=== PATIENT | male | born 1990 | race African-American/Black ===

== ENCOUNTER 2016-05-22 16:30 | Emergency (ER) | payer OTHER ==
[~2016-05-22] VITALS: Ht 193 cm; Wt 74.8 kg
[2016-05-22 17:43] LABS: MEAN CORPUSCULAR HEMOGLOBIN 23.3 pg (27.0-33.0); MEAN CORPUSCULAR HGB CONC 32.2 g/dl (32.0-36.5); MEAN CORPUSCULAR VOLUME 72.3 fl (80.0-96.0); RED CELL DISTRIBUTION WIDTH 13.8 % (11.5-14.5); WHITE BLOOD COUNT 5.4 K/mm3 (4.0-10.0)
[2016-05-22 18:05] LABS: ALBUMIN 4.2 GM/DL (3.2-5.2); ALBUMIN/GLOBULIN RATIO 1.45 (1.00-1.93); ALKALINE PHOSPHATASE 57 U/L (45-117); ALT/SGPT 27 U/L (12-78); ANION GAP 10 MEQ/L (8-16); AST/SGOT 15 U/L (15-37); BILIRUBIN,DIRECT 0.2 MG/DL (0.0-0.2); BILIRUBIN,TOTAL 1.1 MG/DL (0.2-1.0); BLOOD UREA NITROGEN 11 MG/DL (7-18); CALCIUM LEVEL 9.2 MG/DL (8.5-10.1); CARBON DIOXIDE LEVEL 28 MEQ/L (21-32); CHLORIDE LEVEL 104 MEQ/L (98-107); CREATININE FOR GFR 1.07 MG/DL (0.70-1.30); GLOMERULAR FILTRATION RATE > 60.0 (>60); GLUCOSE, FASTING 94 MG/DL (70-105); POTASSIUM SERUM 3.6 MEQ/L (3.5-5.1); SODIUM LEVEL 142 MEQ/L (136-145); TOTAL PROTEIN 7.1 GM/DL (6.4-8.2)
[2016-05-22 18:09] LABS: AMPHETAMINES LEVEL URINE NEGATIVE (NEGATIVE); BENZODIAZEPINES URINE NEGATIVE (NEGATIVE); COCAINE METABOLITE URINE NEGATIVE (NEGATIVE); CONTROL LINE INT CTR LINE PRESENT; METHADONE URINE NEGATIVE (NEGATIVE); OPIATES URINE NEGATIVE (NEGATIVE); TRICYCLIC ANTIDEPRESS URINE NEGATIVE (NEGATIVE)
[2016-05-22] MEDS ORDERED: LURASIDONE HCL 40 MG TAB (LATUDA) PO ONE (20:00)
--- NOTE | 2016-05-22 20:12 | EDDOCDS ---
Nurse's Notes [facility] Name: Sivakumar Castro Age: 26 yrs Sex: Male : 1990 Arrival Date: 05/22/2016 Time: 16:30 Bed OBSERVATION Private MD: Blake Castillo Diagnosis: Unspecified mood [affective] disorder Presentation: 05/22 16:34 Presenting complaint: Patient states: "I've just been really depressed. Saying I'm jc4 going to hurt myself". Denies plan. Mental Health Triage Level: Level 2: The patient displays active suicidal ideations. Adult Sepsis Screening: The patient does not have new or worsening altered mentation. Patient's respiratory rate is less than 22. Systolic blood pressure is greater than 100. Patient has a qSOFA score of 0- Negative Sepsis Screen. Suicide/Homicide risk assessment- The patient reports that he/she has not been admitted to an inpatient mental health facility in the last 30 days. The patient reports that he/she does not have a recent or current history of substance abuse. The patient reports that he/she has a prior history of suicide attempt and/or organized plan. The patient reports that he/she has not experienced a significant life altering event in the last 30 days. The patient reports that he/she has adequate social support. The patient reports he/she has no significant chronic medical condition(s). Status: Patient is not a food service cashier or dependent. Transition of care: patient was not received from another setting of care. 16:34 Acuity: MALENA Level 3 jc4 16:34 Method Of Arrival: Walkin/Carried/Asstd jc4 Triage Assessment: 16:37 General: Appears in no apparent distress. Pain: Location: right and left knee Pain jc4 currently is 5 out of 10 on a pain scale. Pt Declines HIV testing. Historical: - Allergies: Bactrim; PENICILLINS; - Home Meds: 1. Remeron 30 mg Oral tab 1 tab once daily (Last dose: Unknown) - PMHx: Depression; - PSHx: Adenoidectomy; - Social history: Smoking status: Patient uses tobacco products, heavy tobacco smoker. No barriers to communication noted, The patient speaks fluent Kiswahili. - Family history: Not pertinent. - : The pt / caregiver states he / she is not on anticoagulants. Home medication list is obtained from the patient. - Exposure Risk Screening:: None identified. Screenin:25 Screening information is obtained from the patient. Fall risk: No risks identified. mk4 Assistance ADL's: requires no assistance with activities of daily living. Abuse/DV Screen: The patient / caregiver reports he/she is: not in a situation that causes fear, pain or injury. Nutritional screening: No deficits noted. Advance Directives: Currently, there is no health care proxy. There is no active DNR order. There is no living will. There is no Power of Bridge Welder. Advance directive information has not previously been placed in an [facility] medical record. Further advance directive information is declined. home support is adequate. Assessment: 17:10 General: Appears in no apparent distress, Behavior is cooperative, quiet. Pain: Denies mk4 pain. Neurological: Level of Consciousness is awake, alert, Oriented to person, place, time. Respiratory: Airway is patent Respiratory effort is even, unlabored, Respiratory pattern is regular. : Derm: No deficits noted. 17:45 General: Appears in no apparent distress, comfortable, family at bedside. mk4 18:17 General: Appears in no apparent distress, comfortable, Behavior is cooperative. mk4 18:37 General: Appears in no apparent distress, Behavior is cooperative, dinner tray mk4 provided, family at bedside. 19:08 General: Appears in no apparent distress, comfortable, Behavior is cooperative, quiet. slm General: pt resting on stretcher security observing . Respiratory: Airway is patent Respiratory pattern is regular. 20:00 General: Appears in no apparent distress, comfortable, Behavior is appropriate for age, slm cooperative, pleasant. Pain: Denies pain. Neurological: No deficits noted. Respiratory: Airway is patent Respiratory effort is even, unlabored. Derm: No deficits noted. Vital Signs: 16:32 BP 135 / 67; Pulse 80; Resp 18 S; Temp 96.0(O); Pulse Ox 98% on R/A; Weight 74.84 kg gr2 (R); Height 6 ft. 4 in. (193.04 cm) (R); Pain 3/10; 20:06 BP 126 / 69; Pulse 67; Resp 18; Temp 97.5(O); Pulse Ox 97% ; Pain 5/10; cmb 16:32 Body Mass Index 20.08 (74.84 kg, 193.04 cm) gr2 Vitals: 16:32 Log In Time: May 22, 2016 at 16:32. RN notified that patient meets Red Flag gr2 criteria. ED Course: 16:31 Patient visited by Pao Sevilla. gr2 16:31 Patient moved to Waiting gr2 16:32 Blake Castillo is Private Physician. gr2 16:34 Patient visited by Pao Sevilla. gr2 16:34 Patient moved to Pre RCE gr2 16:36 Triage Initiated jc4 16:38 Juanito Santos DO is Attending Physician. cs11 16:38 Patient moved to [facility] jc4 16:39 Patient visited by Juanito Santos DO. cs11 16:39 Patient moved to OBSERVATION cs11 16:56 Patient visited by Henny Yo RN. mk4 17:06 Patient visited by Mychal Harding Security Aide. pjf 17:06 Pt greeted and oriented to ED. Patient advised of names of staff involved in care, pjf location of call ibrahim, wait times and NPO status. Patient has correct armband on for positive identification. Placed in psych safe attire. Bed in low position. Call light in reach. Side rails up X 1. Security observing. Property removed, secured in belongings bag- Placed in locker #4. Door closed. Noise minimized. Visitors limited. Report received from chart rev. - psych. triage level #2, +si, cooperative \\T\\ this time. The patient / caregiver is instructed regarding the plan of care and ED course. Psych Safety Check: Location: Psych Room. Visual Assessment: Cooperative. 17:16 Patient visited by Mychal Harding Security Aide. pjf 17:24 Acetaminophen Level Sent. mk4 17:24 Basic Metabolic Profile Sent. mk4 17:24 Complete Blood Count Sent. mk4 17:24 Drug Eval Toxicology ED Only Sent. mk4 17:24 Ethyl Alcohol (ethanol) Sent. mk4 17:24 Liver Profile Sent. mk4 17:24 Salicylate Level Sent. mk4 17:24 Thyroid Stimulating Hormone Sent. mk4 17:30 Patient visited by Mychal Harding Security Aide. pjf 17:43 Patient visited by Mychal Harding Security Aide. pjf 18:01 Patient visited by Mychal Harding Security Aide. pjf 18:17 No IV's were initiated during this patient's visit. No procedures done that require mk4 assistance. 18:28 Patient visited by Mychal Harding Security Aide. pjf 18:42 [facility] Payment Agreement was scanned into [employer] and attached to record. zo 18:45 Patient visited by Mychal Harding Security Aide. pjf 19:04 Patient visited by Jennifer Colon. cmb 19:07 Sandhya Little LPN is Primary Nurse. slm 19:27 Referral list, As provided by [facility] is Referral Physician. cs11 19:39 Patient visited by Jennifer Colon. cmb 20:01 Patient visited by Sandhya Little LPN. slm 20:06 Patient visited by Jennifer Colon. cmb Administered Medications: 20:09 Drug: Latuda 40 mg Route: PO; [facility] Order Results: Lab Order: Acetaminophen Level; SPEC'M 05/22/16 16:57 Test: ACETAMINOPHEN LEVEL; Value: < 2.0; Range: 10.0-30.0; Abnormal: Below low normal; Units: UG/ML; Status: F Lab Order: Basic Metabolic Profile; SPEC'M 05/22/16 16:57 Test: GLUCOSE, FASTING; Value: 94; Range: 70-105; Units: MG/DL; Status: F Test: BLOOD UREA NITROGEN; Value: 11; Range: 7-18; Units: MG/DL; Status: F Test: CREATININE FOR GFR; Value: 1.07; Range: 0.70-1.30; Units: MG/DL; Status: F Test: GLOMERULAR FILTRATION RATE; Value: > 60.0; Range: >60; Status: F Test: SODIUM LEVEL; Value: 142; Range: 136-145; Units: MEQ/L; Status: F Test: POTASSIUM SERUM; Value: 3.6; Range: 3.5-5.1; Units: MEQ/L; Status: F Test: CHLORIDE LEVEL; Value: 104; Range: 98-107; Units: MEQ/L; Status: F Test: CARBON DIOXIDE LEVEL; Value: 28; Range: 21-32; Units: MEQ/L; Status: F Test: ANION GAP; Value: 10; Range: 8-16; Units: MEQ/L; Status: F Test: CALCIUM LEVEL; Value: 9.2; Range: 8.5-10.1; Units: MG/DL; Status: F Test Note: ; Units are mL/min/1.73 m2 Chronic Kidney Disease Staging per NKF: Stage I & II GFR >=60 Normal to Mildly Decreased Stage III GFR 30-59 Moderately Decreased Stage IV GFR 15-29 Severely Decreased Stage V GFR <15 Very Little GFR Left ESRD GFR <15 on MOTION PICTURE PROJECTIONIST Lab Order: Complete Blood Count; SPEC'M 05/22/16 16:57 Test: WHITE BLOOD COUNT; Value: 5.4; Range: 4.0-10.0; Units: K/mm3; Status: F Test: RED BLOOD COUNT; Value: 5.53; Range: 4.30-6.10; Units: M/mm3; Status: F Test: HEMOGLOBIN; Value: 12.9; Range: 14.0-18.0; Abnormal: Below low normal; Units: g/dl; Status: F Test: HEMATOCRIT; Value: 40.0; Range: 42.0-52.0; Abnormal: Below low normal; Units: %; Status: F Test: MEAN CORPUSCULAR VOLUME; Value: 72.3; Range: 80.0-96.0; Abnormal: Below low normal; Units: fl; Status: F Test: MEAN CORPUSCULAR HEMOGLOBIN; Value: 23.3; Range: 27.0-33.0; Abnormal: Below low normal; Units: pg; Status: F Test: MEAN CORPUSCULAR HGB CONC; Value: 32.2; Range: 32.0-36.5; Units: g/dl; Status: F Test: RED CELL DISTRIBUTION WIDTH; Value: 13.8; Range: 11.5-14.5; Units: %; Status: F Test: PLATELET COUNT, AUTOMATED; Value: 287; Range: 150-450; Units: k/mm3; Status: F Lab Order: Drug Eval Toxicology ED Only; SPEC'M 05/22/16 16:57 Test: AMPHETAMINES LEVEL URINE; Value: NEGATIVE; Range: NEGATIVE; Status: F Test: BARBITURATES URINE; Value: NEGATIVE; Range: NEGATIVE; Status: F Test: BENZODIAZEPINES URINE; Value: NEGATIVE; Range: NEGATIVE; Status: F Test: CANNABINOIDS URINE; Value: NEGATIVE; Range: NEGATIVE; Status: F Test: COCAINE METABOLITE URINE; Value: NEGATIVE; Range: NEGATIVE; Status: F Test: METHADONE URINE; Value: NEGATIVE; Range: NEGATIVE; Status: F Test: OPIATES URINE; Value: NEGATIVE; Range: NEGATIVE; Status: F Test: TRICYCLIC ANTIDEPRESS URINE; Value: NEGATIVE; Range: NEGATIVE; Status: F Test Note: ; ALL PRESUMPTIVE POSITIVE FINDINGS ARE UNCONFIRMED NORMAL VALUES THRESHOLD IN NG/ML AMPHETAMINES 1000 METHAMPHETAMINES 1000 BARBITURATES 300 BENZODIAZEPINES 300 CANNABINOIDS (THC) 50 COCAINE METABOLITE 300 METHADONE 300 OPIATES 300 PHENCYCLIDINE 25 TRICYCLIC ANTIDEPRESSANTS 1000 RESULTS ARE FOR MEDICAL PURPOSES ONLY. ALL URINE SPECIMENS WILL BE SAVED FOR 3 DAYS. IF CONFIRMATION OF A PRESUMPTIVE POSTIVE SCREEN RESULT IS DESIRED, CALL CHEMISTRY ([phone]) AND REQUEST URINE TO BE SENT TO REFERENCE LAB. FOR A LIST OF CLOSELY RELATED COMPOUNDS PLEASE CALL THE LAB. Lab Order: Ethyl Alcohol (ethanol); SPEC'M 05/22/16 16:57 Test: ETHYL ALCOHOL (ETHANOL); Value: < 0.003; Range: 0.000-0.010; Units: %; Status: F Lab Order: Liver Profile; SPEC'M 05/22/16 16:57 Test: AST/SGOT; Value: 15; Range: 15-37; Units: U/L; Status: F Test: ALT/SGPT; Value: 27; Range: 12-78; Units: U/L; Status: F Test: ALKALINE PHOSPHATASE; Value: 57; Range: 45-117; Units: U/L; Status: F Test: BILIRUBIN,TOTAL; Value: 1.1; Range: 0.2-1.0; Abnormal: Above high normal; Units: MG/DL; Status: F Test: BILIRUBIN,DIRECT; Value: 0.2; Range: 0.0-0.2; Units: MG/DL; Status: F Test: TOTAL PROTEIN; Value: 7.1; Range: 6.4-8.2; Units: GM/DL; Status: F Test: ALBUMIN; Value: 4.2; Range: 3.2-5.2; Units: GM/DL; Status: F Test: ALBUMIN/GLOBULIN RATIO; Value: 1.45; Range: 1.00-1.93; Status: F Lab Order: Salicylate Level; SPEC'M 05/22/16 16:57 Test: SALICYLATE LEVEL; Value: < 1.7; Range: 5.0-30.0; Abnormal: Below low normal; Units: MG/DL; Status: F Lab Order: Thyroid Stimulating Hormone; SPEC'M 05/22/16 16:57 Test: THYROID STIMULATING HORMONE; Value: 0.512; Range: 0.358-3.740; Units: uIU/ML; Status: F Outcome: 19:27 Discharge ordered by Provider. cs11 20:00 Discharge Assessment: Patient awake, alert and oriented x 3. No cognitive and/or slm functional deficits noted. Patient verbalized understanding of disposition instructions. patient administered narcotics - no. The following High Risk Discharge criteria are identified: Yes, pt seen by MD and PSA d/c home with s/o. Discharged to home ambulatory. Condition: good. Discharge instructions given to patient, Instructed on discharge instructions, follow up and referral plans. Demonstrated understanding of instructions, Pt was receptive of discharge instructions/ teaching. No special radiology studies were completed. 20:11 Patient left the ED. [facility] Signatures: Mychal Harding Security Aide Securpjf Olin, Zoeann zo Castle, Jennifer, RN RN [email or web address] Jennifer Colon Craig, DO DO cs11 Pao Sevilla gr2 Sandhya Little,ADITYA ORTHOPEDIC BRACE MAKER [facility] Henny Yo, RN RN mk4 MTDRonal
--- NOTE | 2016-05-22 20:12 | EDDOCDS ---
Physician Documentation [facility] Name: Sivakumar Castro Age: 26 yrs Sex: Male : 1990 Arrival Date: 05/22/2016 Time: 16:30 Bed OBSERVATION Private MD: Blake Castillo Disposition: 05/22/16 19:27 Discharged to Home/Self Care. Impression: Unspecified mood [affective] disorder. - Condition is Stable. - Prescriptions for Latuda 40 mg Oral tablet - take 1 tablet by ORAL route once daily; 30 tablet. - Medication Reconciliation, Local Pharmacy Hours form. - Follow up: Referral list, As provided by PFS; When: Call to arrange an appointment; Reason: Recheck today's complaints. - Problem is chronic. - Symptoms have improved. Historical: - Allergies: Bactrim; PENICILLINS; - Home Meds: 1. Remeron 30 mg Oral tab 1 tab once daily (Last dose: Unknown) - PMHx: Depression; - PSHx: Adenoidectomy; - Social history: Smoking status: Patient uses tobacco products, heavy tobacco smoker. No barriers to communication noted, The patient speaks fluent Portuguese. - Family history: Not pertinent. - : The pt / caregiver states he / she is not on anticoagulants. Home medication list is obtained from the patient. - Exposure Risk Screening:: None identified. Vital Signs: 05/22 16:32 BP 135 / 67; Pulse 80; Resp 18 S; Temp 96.0(O); Pulse Ox 98% on R/A; Weight 74.84 kg / gr2 164.99 lbs (R); Height 6 ft. 4 in. (193.04 cm) (R); Pain 3/10; 20:06 BP 126 / 69; Pulse 67; Resp 18; Temp 97.5(O); Pulse Ox 97% ; Pain 5/10; cmb 16:32 Body Mass Index 20.08 (74.84 kg, 193.04 cm) gr2 MDM: 16:39 Consult PFS/PSA/Skip Miner ordered. cs11 16:39 Consult PFS/PSA/Skip Miner: Patient's case requires discussion with on-call cs11 Psychiatrist ordered. 16:39 PSA/PFS to call Nursing Cytopathology Technologist, to enter patient data on [place] Safe [place] if patient cs11 involuntarily admitted or transferred for SI or HI ordered. 16:39 Confirm accurate psychiatric medication list and times of last dosage ordered. cs11 16:39 Detain Pt Until Medically/PFS Cleared ordered. cs11 16:40 Acetaminophen Level Ordered. EDMS 16:40 Basic Metabolic Profile Ordered. EDMS 16:40 Complete Blood Count Ordered. EDMS 16:40 Drug Eval Toxicology ED Only Ordered. EDMS 16:40 Ethyl Alcohol (ethanol) Ordered. EDMS 16:40 Liver Profile Ordered. EDMS 16:40 Salicylate Level Ordered. EDMS 16:40 Thyroid Stimulating Hormone Ordered. EDMS 16:54 REGULAR DIET PLASTIC FERRARA+DIET ordered. EDMS 17:06 PSA/PFS to call Nursing Cytopathology Technologist, to enter patient data on [place] Safe Act if patient mk4 involuntarily admitted or transferred for SI or HI complete. 17:06 Consult PFS/PSA/Skip Miner: Patient's case requires discussion with on-call 4 Psychiatrist complete. 17:07 Consult PFS/PSA/Skip Miner complete. [facility] 18:29 Financial registration complete. zo 18:42 [facility] Payment Agreement was scanned into [employer] and attached to record. zo 19:23 Acetaminophen Level Reviewed. cs11 19:23 Complete Blood Count Reviewed. cs11 19:23 Liver Profile Reviewed. cs11 19:23 Salicylate Level Reviewed. cs11 19:23 Basic Metabolic Profile Reviewed. cs11 19:23 Drug Eval Toxicology ED Only Reviewed. cs11 19:23 Ethyl Alcohol (ethanol) Reviewed. cs11 19:23 Thyroid Stimulating Hormone Reviewed. cs11 19:26 Latuda 40 mg PO once; administer with food (at least 350 calories) ordered. cs11 Administered Medications: 20:09 Drug: Latuda 40 mg Route: PO; [facility] Signatures: Dispatcher [employer] EDMS Tacho Zuleta Jennifer RN RN jc4 Juanito Santos DO DO cs11 Sandhya Little LPN LPN slm King, Margaret RN RN mk4 The chart was reviewed and I authenticate all verbal orders and agree with the evaluation and treatment provided.Attachments: 18:42 [facility] Payment Agreement zo MTDD
--- NOTE | 2016-05-24 21:12 | EDDOCDS ---
Physician Documentation [facility] Name: Sivakumar Castro Age: 26 yrs Sex: Male : 1990 Arrival Date: 05/22/2016 Time: 16:30 Bed OBSERVATION Private MD: Blake Castillo Disposition: 05/22/16 19:27 Discharged to Home/Self Care. Impression: Unspecified mood [affective] disorder. - Condition is Stable. - Prescriptions for Latuda 40 mg Oral tablet - take 1 tablet by ORAL route once daily; 30 tablet. - Medication Reconciliation, Local Pharmacy Hours form. - Follow up: Referral list, As provided by PFS; When: Call to arrange an appointment; Reason: Recheck today's complaints. - Problem is chronic. - Symptoms have improved. Historical: - Allergies: Bactrim; PENICILLINS; - Home Meds: 1. Remeron 30 mg Oral tab 1 tab once daily (Last dose: Unknown) - PMHx: Depression; - PSHx: Adenoidectomy; - Social history: Smoking status: Patient uses tobacco products, heavy tobacco smoker. No barriers to communication noted, The patient speaks fluent Bulgarian. - Family history: Not pertinent. - : The pt / caregiver states he / she is not on anticoagulants. Home medication list is obtained from the patient. - Exposure Risk Screening:: None identified. Vital Signs: 05/22 16:32 BP 135 / 67; Pulse 80; Resp 18 S; Temp 96.0(O); Pulse Ox 98% on R/A; Weight 74.84 kg / gr2 164.99 lbs (R); Height 6 ft. 4 in. (193.04 cm) (R); Pain 3/10; 20:06 BP 126 / 69; Pulse 67; Resp 18; Temp 97.5(O); Pulse Ox 97% ; Pain 5/10; cmb 16:32 Body Mass Index 20.08 (74.84 kg, 193.04 cm) gr2 MDM: 16:39 Consult PFS/PSA/Adult Educator ordered. cs11 16:39 Consult PFS/PSA/Adult Educator: Patient's case requires discussion with on-call cs11 Psychiatrist ordered. 16:39 PSA/PFS to call Nursing Chipper Machine Operator, to enter patient data [place] Safe [place] if patient cs11 involuntarily admitted or transferred for SI or HI ordered. 16:39 Confirm accurate psychiatric medication list and times of last dosage ordered. cs11 16:39 Detain Pt Until Medically/PFS Cleared ordered. cs11 16:40 Acetaminophen Level Ordered. EDMS 16:40 Basic Metabolic Profile Ordered. EDMS 16:40 Complete Blood Count Ordered. EDMS 16:40 Drug Eval Toxicology ED Only Ordered. EDMS 16:40 Ethyl Alcohol (ethanol) Ordered. EDMS 16:40 Liver Profile Ordered. EDMS 16:40 Salicylate Level Ordered. EDMS 16:40 Thyroid Stimulating Hormone Ordered. EDMS 16:54 REGULAR DIET PLASTIC FERRARA+DIET ordered. EDMS 17:06 PSA/PFS to call Nursing Chipper Machine Operator, to enter patient data on [place] Safe Act if patient mk4 involuntarily admitted or transferred for SI or HI complete. 17:06 Consult PFS/PSA/Adult Educator: Patient's case requires discussion with on-call 4 Psychiatrist complete. 17:07 Consult PFS/PSA/Adult Educator complete. [facility] 18:29 Financial registration complete. zo 18:42 [facility] Payment Agreement was scanned into [employer] and attached to record. zo 19:23 Acetaminophen Level Reviewed. cs11 19:23 Complete Blood Count Reviewed. cs11 19:23 Liver Profile Reviewed. cs11 19:23 Salicylate Level Reviewed. cs11 19:23 Basic Metabolic Profile Reviewed. cs11 19:23 Drug Eval Toxicology ED Only Reviewed. cs11 19:23 Ethyl Alcohol (ethanol) Reviewed. cs11 19:23 Thyroid Stimulating Hormone Reviewed. cs11 19:26 Latuda 40 mg PO once; administer with food (at least 350 calories) ordered. cs11 20:15 PSA Outpatient Referrals was scanned into [employer] and attached to record. ml4 05/23 03:55 T-Sheet-- Draft Copy was scanned into [employer] and attached to record. hs2 Administered Medications: 05/22 20:09 Drug: Latuda 40 mg Route: PO; slm Signatures: Dispatcher [employer] EDMS Melita Narayan, PSA PSA ml4 Tacho Zuleta Jennifer, RN RN jc4 Juanito Santos, DO cs11 Sandhya Little LPN LPN Henny Doyle RN RN mk4 Belkis Sandesr, Reg Reg hs2 The chart was reviewed and I authenticate all verbal orders and agree with the evaluation and treatment provided.Attachments: 18:42 [facility] Payment Agreement zo 05/23 03:55 T-Sheet-- Draft Copy hs2 Chart Complete MTDD
--- NOTE | 2016-05-24 21:12 | EDDOCDS ---
Physician Documentation [facility] Name: Sivakumar aCstro Age: 26 yrs Sex: Male : 1990 Arrival Date: 05/22/2016 Time: 16:30 Bed OBSERVATION Private MD: Blake Castillo Disposition: 05/22/16 19:27 Discharged to Home/Self Care. Impression: Unspecified mood [affective] disorder. - Condition is Stable. - Prescriptions for Latuda 40 mg Oral tablet - take 1 tablet by ORAL route once daily; 30 tablet. - Medication Reconciliation, Local Pharmacy Hours form. - Follow up: Referral list, As provided by PFS; When: Call to arrange an appointment; Reason: Recheck today's complaints. - Problem is chronic. - Symptoms have improved. Historical: - Allergies: Bactrim; PENICILLINS; - Home Meds: 1. Remeron 30 mg Oral tab 1 tab once daily (Last dose: Unknown) - PMHx: Depression; - PSHx: Adenoidectomy; - Social history: Smoking status: Patient uses tobacco products, heavy tobacco smoker. No barriers to communication noted, The patient speaks fluent Uzbek. - Family history: Not pertinent. - : The pt / caregiver states he / she is not on anticoagulants. Home medication list is obtained from the patient. - Exposure Risk Screening:: None identified. Vital Signs: 05/22 16:32 BP 135 / 67; Pulse 80; Resp 18 S; Temp 96.0(O); Pulse Ox 98% on R/A; Weight 74.84 kg / gr2 164.99 lbs (R); Height 6 ft. 4 in. (193.04 cm) (R); Pain 3/10; 20:06 BP 126 / 69; Pulse 67; Resp 18; Temp 97.5(O); Pulse Ox 97% ; Pain 5/10; cmb 16:32 Body Mass Index 20.08 (74.84 kg, 193.04 cm) gr2 MDM: 16:39 Consult PFS/PSA/Proof Carrier ordered. cs11 16:39 Consult PFS/PSA/Proof Carrier: Patient's case requires discussion with on-call cs11 Psychiatrist ordered. 16:39 PSA/PFS to call Nursing [employer]de [employer] Finisher, to enter patient data on [place] Safe Act if patient cs11 involuntarily admitted or transferred for SI or HI ordered. 16:39 Confirm accurate psychiatric medication list and times of last dosage ordered. cs11 16:39 Detain Pt Until Medically/PFS Cleared ordered. cs11 16:40 Acetaminophen Level Ordered. EDMS 16:40 Basic Metabolic Profile Ordered. EDMS 16:40 Complete Blood Count Ordered. EDMS 16:40 Drug Eval Toxicology ED Only Ordered. EDMS 16:40 Ethyl Alcohol (ethanol) Ordered. EDMS 16:40 Liver Profile Ordered. EDMS 16:40 Salicylate Level Ordered. EDMS 16:40 Thyroid Stimulating Hormone Ordered. EDMS 16:54 REGULAR DIET PLASTIC FERRARA+DIET ordered. EDMS 17:06 PSA/PFS to call Nursing [employer], to enter patient data on [place] Safe Act if patient mk4 involuntarily admitted or transferred for SI or HI complete. 17:06 Consult PFS/PSA/Proof Carrier: Patient's case requires discussion with on-call 4 Psychiatrist complete. 17:07 Consult PFS/PSA/Proof Carrier complete. [facility] 18:29 Financial registration complete. zo 18:42 [facility] [place] [place] Payment Agreement was scanned into Estify and attached to record. zo 19:23 Acetaminophen Level Reviewed. cs11 19:23 Complete Blood Count Reviewed. cs11 19:23 Liver Profile Reviewed. cs11 19:23 Salicylate Level Reviewed. cs11 19:23 Basic Metabolic Profile Reviewed. cs11 19:23 Drug Eval Toxicology ED Only Reviewed. cs11 19:23 Ethyl Alcohol (ethanol) Reviewed. cs11 19:23 Thyroid Stimulating Hormone Reviewed. cs11 19:26 Latuda 40 mg PO once; administer with food (at least 350 calories) ordered. cs11 20:15 PSA Outpatient Referrals was scanned into Estify and attached to record. ml4 05/23 03:55 T-Sheet-- Draft Copy was scanned into Estify and attached to record. hs2 Administered Medications: 05/22 20:09 Drug: Latuda 40 mg Route: PO; slm Signatures: Dispatcher [employer] EDMS Melita Narayan, PSA PSA ml4 Tacho Zuleta Jennifer, RN RN jc4 Juanito Santos, DO cs11 Sandhya Little LPN LPN Henny Doyle RN RN mk4 Belkis Sanders, Reg Reg hs2 The chart was reviewed and I authenticate all verbal orders and agree with the evaluation and treatment provided.Attachments: 18:42 [facility] [place] [place] Payment Agreement zo 05/23 03:55 T-Sheet-- Draft Copy hs2 Chart Complete MTDD
--- NOTE | 2016-05-24 21:12 | EDDOCDS ---
Nurse's Notes [facility] Name: Sivakumar Castro Age: 26 yrs Sex: Male : 1990 Arrival Date: 05/22/2016 Time: 16:30 Bed OBSERVATION Private MD: Blake Castillo Diagnosis: Unspecified mood [affective] disorder Presentation: 05/22 16:34 Presenting complaint: Patient states: "I've just been really depressed. Saying I'm jc4 going to hurt myself". Denies plan. Mental Health Triage Level: Level 2: The patient displays active suicidal ideations. Adult Sepsis Screening: The patient does not have new or worsening altered mentation. Patient's respiratory rate is less than 22. Systolic blood pressure is greater than 100. Patient has a qSOFA score of 0- Negative Sepsis Screen. Suicide/Homicide risk assessment- The patient reports that he/she has not been admitted to an inpatient mental health facility in the last 30 days. The patient reports that he/she does not have a recent or current history of substance abuse. The patient reports that he/she has a prior history of suicide attempt and/or organized plan. The patient reports that he/she has not experienced a significant life altering event in the last 30 days. The patient reports that he/she has adequate social support. The patient reports he/she has no significant chronic medical condition(s). Status: Patient is not a retail services professional or dependent. Transition of care: patient was not received from another setting of care. 16:34 Acuity: MALENA Level 3 jc4 16:34 Method Of Arrival: Walkin/Carried/Asstd jc4 Triage Assessment: 16:37 General: Appears in no apparent distress. Pain: Location: right and left knee Pain jc4 currently is 5 out of 10 on a pain scale. Pt Declines HIV testing. Historical: - Allergies: Bactrim; PENICILLINS; - Home Meds: 1. Remeron 30 mg Oral tab 1 tab once daily (Last dose: Unknown) - PMHx: Depression; - PSHx: Adenoidectomy; - Social history: Smoking status: Patient uses tobacco products, heavy tobacco smoker. No barriers to communication noted, The patient speaks fluent Hebrew. - Family history: Not pertinent. - : The pt / caregiver states he / she is not on anticoagulants. Home medication list is obtained from the patient. - Exposure Risk Screening:: None identified. Screenin:25 Screening information is obtained from the patient. Fall risk: No risks identified. mk4 Assistance ADL's: requires no assistance with activities of daily living. Abuse/DV Screen: The patient / caregiver reports he/she is: not in a situation that causes fear, pain or injury. Nutritional screening: No deficits noted. Advance Directives: Currently, there is no health care proxy. There is no active DNR order. There is no living will. There is no Power of Abrasive Grinder. Advance directive information has not previously been placed in an [facility] medical record. Further advance directive information is declined. home support is adequate. Assessment: 17:10 General: Appears in no apparent distress, Behavior is cooperative, quiet. Pain: Denies mk4 pain. Neurological: Level of Consciousness is awake, alert, Oriented to person, place, time. Respiratory: Airway is patent Respiratory effort is even, unlabored, Respiratory pattern is regular. : Derm: No deficits noted. 17:45 General: Appears in no apparent distress, comfortable, family at bedside. mk4 18:17 General: Appears in no apparent distress, comfortable, Behavior is cooperative. mk4 18:37 General: Appears in no apparent distress, Behavior is cooperative, dinner tray mk4 provided, family at bedside. 19:08 General: Appears in no apparent distress, comfortable, Behavior is cooperative, quiet. slm General: pt resting on stretcher security observing . Respiratory: Airway is patent Respiratory pattern is regular. 20:00 General: Appears in no apparent distress, comfortable, Behavior is appropriate for age, slm cooperative, pleasant. Pain: Denies pain. Neurological: No deficits noted. Respiratory: Airway is patent Respiratory effort is even, unlabored. Derm: No deficits noted. Mental Health Eval: 19:01 Mental health consult is initiated at 18:45. Status: The patient is not a ml4 retail services professional or dependent. [facility] Behavioral Health: The patient is not an established patient of [facility] Behavioral Health. Referral Information: Evaluation referral is generated by the patient himself / herself. The patient was referred for evaluation because verbal altercation with friend where pt expressed SI, no specific plan. . Subjective: The patients chief complaint is pt states, "I just said something stupid, I'm not really suicidal." Pt reports a hx of depression, however does not feel he was diagnosed properly. Admits he was incarcerated in August, for selling drugs, was transferred to [place] where he was diagnosed with Bipolar Disorder and prescribed Latuda. He feels the medication was beneficial and is requesting medication. He adamantly SI and HIs, able to CFS. . Delusions are denied. Patient's mood is appropriate. Hallucinations are denied. Mental Health history: depression, Mental Health Admissions: None. Current Outpatient Mental Health Services: None. Current living environment is The patient currently lives Friends . The patient is single. Patient presents to Emergency Department with the following symptoms within the past 2 weeks: anxiety, depressed mood, suicidal ideation with no plan. Substance abuse: Patient uses marijuana Patient uses tobacco 1 pack Frequency daily. Mental status exam: Patients appearance is appropriate, Patient's behavior is cooperative, Speech is normal. Affect is appropriate. Mood is appropriate. Hallucinations are denied. Appetite is normal. Memory is good. Energy level is normal. Content of thought is normal. Thought process is intact. Cognitive level is oriented to person, place, time and situation Patient's insight is good. Judgement is good. Rapport with interviewer is good. Suicidal Ideation is denied. Homicidal ideation is denied. Disposition: Medically cleared for disposition by Juanito Santos DO Psychiatric Consult is deferred per ED physician, Dr Santos . [facility] Admission Criteria: Not Applicable. DSM-V Differential Diagnosis: Bipolar I Disorder (F31.0) Current or most recent episode unspecified (F31.9). Narrative: Pt is able to discharged from [facility]. He continues to deny SI and HI, able to CFS. Referrals for outpt services was given at bedside and directed to follow up with TLS for further tx. Vital Signs: 16:32 BP 135 / 67; Pulse 80; Resp 18 S; Temp 96.0(O); Pulse Ox 98% on R/A; Weight 74.84 kg gr2 (R); Height 6 ft. 4 in. (193.04 cm) (R); Pain 3/10; 20:06 BP 126 / 69; Pulse 67; Resp 18; Temp 97.5(O); Pulse Ox 97% ; Pain 5/10; cmb 16:32 Body Mass Index 20.08 (74.84 kg, 193.04 cm) gr2 Vitals: 16:32 Log In Time: May 22, 2016 at 16:32. RN notified that patient meets Red Flag gr2 criteria. ED Course: 16:31 Patient visited by Pao Sevilla. gr2 16:31 Patient moved to Waiting gr2 16:32 Blake Castillo is Private Physician. gr2 16:34 Patient visited by Pao Sevilla. gr2 16:34 Patient moved to Pre RCE gr2 16:36 Triage Initiated jc4 16:38 Juanito Santos DO is Attending Physician. cs11 16:38 Patient moved to [facility] jc4 16:39 Patient visited by Juanito Santos DO. cs11 16:39 Patient moved to OBSERVATION cs11 16:56 Patient visited by Henny Yo RN. mk4 17:06 Patient visited by Mychal Harding Security Aide. pjf 17:06 Pt greeted and oriented to ED. Patient advised of names of staff involved in care, pjf location of call ibrahim, wait times and NPO status. Patient has correct armband on for positive identification. Placed in psych safe attire. Bed in low position. Call light in reach. Side rails up X 1. Security observing. Property removed, secured in belongings bag- Placed in locker #4. Door closed. Noise minimized. Visitors limited. Report received from chart rev. - psych. triage level #2, +si, cooperative \\T\\ this time. The patient / caregiver is instructed regarding the plan of care and ED course. Psych Safety Check: Location: Psych Room. Visual Assessment: Cooperative. 17:16 Patient visited by Mychal Harding Security Aide. pjf 17:24 Acetaminophen Level Sent. mk4 17:24 Basic Metabolic Profile Sent. mk4 17:24 Complete Blood Count Sent. mk4 17:24 Drug Eval Toxicology ED Only Sent. mk4 17:24 Ethyl Alcohol (ethanol) Sent. mk4 17:24 Liver Profile Sent. mk4 17:24 Salicylate Level Sent. mk4 17:24 Thyroid Stimulating Hormone Sent. mk4 17:30 Patient visited by Mychal Harding Security Aide. pjf 17:43 Patient visited by Mychal Harding Security Aide. pjf 18:01 Patient visited by Mychal Harding Security Aide. pjf 18:17 No IV's were initiated during this patient's visit. No procedures done that require mk4 assistance. 18:28 Patient visited by Mychal Harding Security Aide. pjf 18:42 [facility] [place] was scanned into Kwanji and attached to record. zo 18:45 Patient visited by Mychal Harding Security Aide. pjf 19:04 Patient visited by Jennifer Colon. cmb 19:07 Sandhya Little LPN is Primary Nurse. slm 19:27 Referral list, As provided by [facility] is Referral Physician. cs11 19:39 Patient visited by Jennifer Colon. cmb 20:01 Patient visited by Sandhya Little LPN. slm 20:06 Patient visited by Jennifer Colon. cmb 20:15 PSA Outpatient Referrals was scanned into Kwanji and attached to record. ml4 05/23 03:55 T-Sheet-- Draft Copy was scanned into Kwanji and attached to record. hs2 Administered Medications: 05/22 20:09 Drug: Latuda 40 mg Route: PO; [facility] Order Results: Lab Order: Acetaminophen Level; SPEC'M 05/22/16 16:57 Test: ACETAMINOPHEN LEVEL; Value: < 2.0; Range: 10.0-30.0; Abnormal: Below low normal; Units: UG/ML; Status: F Lab Order: Basic Metabolic Profile; SPEC'M 05/22/16 16:57 Test: GLUCOSE, FASTING; Value: 94; Range: 70-105; Units: MG/DL; Status: F Test: BLOOD UREA NITROGEN; Value: 11; Range: 7-18; Units: MG/DL; Status: F Test: CREATININE FOR GFR; Value: 1.07; Range: 0.70-1.30; Units: MG/DL; Status: F Test: GLOMERULAR FILTRATION RATE; Value: > 60.0; Range: >60; Status: F Test: SODIUM LEVEL; Value: 142; Range: 136-145; Units: MEQ/L; Status: F Test: POTASSIUM SERUM; Value: 3.6; Range: 3.5-5.1; Units: MEQ/L; Status: F Test: CHLORIDE LEVEL; Value: 104; Range: 98-107; Units: MEQ/L; Status: F Test: CARBON DIOXIDE LEVEL; Value: 28; Range: 21-32; Units: MEQ/L; Status: F Test: ANION GAP; Value: 10; Range: 8-16; Units: MEQ/L; Status: F Test: CALCIUM LEVEL; Value: 9.2; Range: 8.5-10.1; Units: MG/DL; Status: F Test Note: ; Units are mL/min/1.73 m2 Chronic Kidney Disease Staging per NKF: Stage I & II GFR >=60 Normal to Mildly Decreased Stage III GFR 30-59 Moderately Decreased Stage IV GFR 15-29 Severely Decreased Stage V GFR <15 Very Little GFR Left ESRD GFR <15 on STATISTICAL GENETICIST Lab Order: Complete Blood Count; SPEC'M 05/22/16 16:57 Test: WHITE BLOOD COUNT; Value: 5.4; Range: 4.0-10.0; Units: K/mm3; Status: F Test: RED BLOOD COUNT; Value: 5.53; Range: 4.30-6.10; Units: M/mm3; Status: F Test: HEMOGLOBIN; Value: 12.9; Range: 14.0-18.0; Abnormal: Below low normal; Units: g/dl; Status: F Test: HEMATOCRIT; Value: 40.0; Range: 42.0-52.0; Abnormal: Below low normal; Units: %; Status: F Test: MEAN CORPUSCULAR VOLUME; Value: 72.3; Range: 80.0-96.0; Abnormal: Below low normal; Units: fl; Status: F Test: MEAN CORPUSCULAR HEMOGLOBIN; Value: 23.3; Range: 27.0-33.0; Abnormal: Below low normal; Units: pg; Status: F Test: MEAN CORPUSCULAR HGB CONC; Value: 32.2; Range: 32.0-36.5; Units: g/dl; Status: F Test: RED CELL DISTRIBUTION WIDTH; Value: 13.8; Range: 11.5-14.5; Units: %; Status: F Test: PLATELET COUNT, AUTOMATED; Value: 287; Range: 150-450; Units: k/mm3; Status: F Lab Order: Drug Eval Toxicology ED Only; SPEC'05/22/16 16:57 Test: AMPHETAMINES LEVEL URINE; Value: NEGATIVE; Range: NEGATIVE; Status: F Test: BARBITURATES URINE; Value: NEGATIVE; Range: NEGATIVE; Status: F Test: BENZODIAZEPINES URINE; Value: NEGATIVE; Range: NEGATIVE; Status: F Test: CANNABINOIDS URINE; Value: NEGATIVE; Range: NEGATIVE; Status: F Test: COCAINE METABOLITE URINE; Value: NEGATIVE; Range: NEGATIVE; Status: F Test: METHADONE URINE; Value: NEGATIVE; Range: NEGATIVE; Status: F Test: OPIATES URINE; Value: NEGATIVE; Range: NEGATIVE; Status: F Test: TRICYCLIC ANTIDEPRESS URINE; Value: NEGATIVE; Range: NEGATIVE; Status: F Test Note: ; ALL PRESUMPTIVE POSITIVE FINDINGS ARE UNCONFIRMED NORMAL VALUES THRESHOLD IN NG/ML AMPHETAMINES 1000 METHAMPHETAMINES 1000 BARBITURATES 300 BENZODIAZEPINES 300 CANNABINOIDS (THC) 50 COCAINE METABOLITE 300 METHADONE 300 OPIATES 300 PHENCYCLIDINE 25 TRICYCLIC ANTIDEPRESSANTS 1000 RESULTS ARE FOR MEDICAL PURPOSES ONLY. ALL URINE SPECIMENS WILL BE SAVED FOR 3 DAYS. IF CONFIRMATION OF A PRESUMPTIVE POSTIVE SCREEN RESULT IS DESIRED, CALL CHEMISTRY ([phone]) AND REQUEST URINE TO BE SENT TO REFERENCE LAB. FOR A LIST OF CLOSELY RELATED COMPOUNDS PLEASE CALL THE LAB. Lab Order: Ethyl Alcohol (ethanol); SPEC'M 05/22/16 16:57 Test: ETHYL ALCOHOL (ETHANOL); Value: < 0.003; Range: 0.000-0.010; Units: %; Status: F Lab Order: Liver Profile; SPEC'M 05/22/16 16:57 Test: AST/SGOT; Value: 15; Range: 15-37; Units: U/L; Status: F Test: ALT/SGPT; Value: 27; Range: 12-78; Units: U/L; Status: F Test: ALKALINE PHOSPHATASE; Value: 57; Range: 45-117; Units: U/L; Status: F Test: BILIRUBIN,TOTAL; Value: 1.1; Range: 0.2-1.0; Abnormal: Above high normal; Units: MG/DL; Status: F Test: BILIRUBIN,DIRECT; Value: 0.2; Range: 0.0-0.2; Units: MG/DL; Status: F Test: TOTAL PROTEIN; Value: 7.1; Range: 6.4-8.2; Units: GM/DL; Status: F Test: ALBUMIN; Value: 4.2; Range: 3.2-5.2; Units: GM/DL; Status: F Test: ALBUMIN/GLOBULIN RATIO; Value: 1.45; Range: 1.00-1.93; Status: F Lab Order: Salicylate Level; SPEC'M 05/22/16 16:57 Test: SALICYLATE LEVEL; Value: < 1.7; Range: 5.0-30.0; Abnormal: Below low normal; Units: MG/DL; Status: F Lab Order: Thyroid Stimulating Hormone; SPEC'M 05/22/16 16:57 Test: THYROID STIMULATING HORMONE; Value: 0.512; Range: 0.358-3.740; Units: uIU/ML; Status: F Outcome: 19:27 Discharge ordered by Provider. cs11 20:00 Discharge Assessment: Patient awake, alert and oriented x 3. No cognitive and/or slm functional deficits noted. Patient verbalized understanding of disposition instructions. patient administered narcotics - no. The following High Risk Discharge criteria are identified: Yes, pt seen by and RALF d/c home with s/o. Discharged to home ambulatory. Condition: good. Discharge instructions given to patient, Instructed on discharge instructions, follow up and referral plans. Demonstrated understanding of instructions, Pt was receptive of discharge instructions/ teaching. No special radiology studies were completed. 20:11 Patient left the ED. [facility] Signatures: Mychal Harding, Melita Valdez PSA PSA ml4 Tacho Zuleta Jennifer, RN RN jc4 Jennifer Colon cmJuanito Carcamo, DO DO cs11 Pao Sevilla gr2 Sandhya Little LPN LPN Henny Noriega RN RN mk4 Belkis Sanders, Reg Reg hs2 Chart Complete MTDD
== END 2016-05-22 20:11 | disposition home or self-care (01) ==
LOC: M ED 16:30
DX: F39 Unspecified mood [affective] disorder (principal); F32.9 Major depressive disorder, single episode, unspecified; Z90.89 Acquired absence of other organs; Z72.0 Tobacco use; Z79.899 Other long term (current) drug therapy; Z88.0 Allergy status to penicillin
CPT/HCPCS: 36415; 80048; 80076; 80306; 84443; 85027; 99284; G0480

== ENCOUNTER 2016-07-24 21:40 | Emergency (ER) | payer OTHER ==
[~2016-07-24] VITALS: Ht 193 cm; Wt 72.6 kg
[2016-07-24 21:41] VITALS: BP 111/58
== END 2016-07-24 22:20 | disposition left against medical advice (07) ==
LOC: M ED 22:15
DX: S89.90XA Unspecified injury of unspecified lower leg, initial encounter (principal); X58.XXXA Exposure to other specified factors, initial encounter; Y92.89 Other specified places as the place of occurrence of the external cause; Y93.89 Activity, other specified; Y99.8 Other external cause status; Z53.29 Procedure and treatment not carried out because of patient's decision for other reasons

== ENCOUNTER → 2017-04-09 | Outpatient (CLI) | payer MEDICAID ==
[2017-04-12 08:06] LABS: ACETAMINOPHEN Negative ug/mL (10-30); AMITRIPTYLINE None Detected (Not Estab.); BUTALBITAL None Detected ug/mL (1-10); DESIPRAMINE None Detected (Not Estab.); DIAZEPAM None Detected ug/mL (0.1-0.9); DOXEPIN None Detected (Not Estab.); ETHANOL Negative % (0.000-0.010); NORCHLORDIAZEPOXIDE None Detected ug/mL (0.1-0.6); NORDIAZEPAM None Detected ug/mL (0.1-1.4); NORDOXEPIN None Detected (Not Estab.); NORTRIPTYLINE None Detected ng/mL (50-150); PENTOBARBITAL None Detected ug/mL (1-5); PHENOBARBITAL None Detected ug/mL (15-40); PHENYTOIN None Detected ug/mL (10.0-20.0)
== END ==
LOC: M OUTALCOH 07:48
PROVIDERS: ATTEND Psychiatry & Neurology Psychiatry
DX: F12.20 Cannabis dependence, uncomplicated (principal)

== ENCOUNTER 2017-04-18 15:00 | Outpatient (RCR) | payer MEDICAID | END 2017-05-13 | LOC: M OUTALCOH 04-27 16:00 | DX: F12.20 Cannabis dependence, uncomplicated (principal); Z72.0 Tobacco use ==

== ENCOUNTER 2017-05-17 11:00 | Outpatient (RCR) | payer MEDICAID | END 2017-06-13 | LOC: M OUTALCOH 05-21 16:00 | DX: F12.20 Cannabis dependence, uncomplicated (principal); Z72.0 Tobacco use ==

== ENCOUNTER 2017-06-14 11:16 | Outpatient (RCR) | payer MEDICAID | END 2017-07-11 | LOC: M OUTALCOH 11:16 | DX: F12.20 Cannabis dependence, uncomplicated (principal); Z72.0 Tobacco use ==

== ENCOUNTER → 2017-07-05 | Outpatient (REF) | payer MEDICAID ==
[2017-07-09 10:09] LABS: OXYCODONE SCREEN Negative ng/mL (Cutoff:5)
== END ==
LOC: M LABDRAW1 14:10
DX: F12.20 Cannabis dependence, uncomplicated (principal)
CPT/HCPCS: 36415

== ENCOUNTER 2017-07-12 14:14 | Outpatient (RCR) | payer MEDICAID | END 2017-08-11 | LOC: M OUTALCOH 14:14 | DX: F12.20 Cannabis dependence, uncomplicated (principal); Z72.0 Tobacco use ==

== ENCOUNTER 2017-08-13 11:26 | Outpatient (RCR) | payer MEDICAID | END 2017-09-10 | LOC: M OUTALCOH 09-04 10:00 | DX: F12.20 Cannabis dependence, uncomplicated (principal); Z72.0 Tobacco use ==

== ENCOUNTER 2017-08-25 11:54 | Emergency (ER) | payer OTHER, MEDICAID | END 2017-08-25 13:28 | disposition home or self-care (01) | LOC: M ED 11:54 | DX: S69.91XA Unspecified injury of right wrist, hand and finger(s), initial encounter (principal); Y04.0XXA Assault by unarmed brawl or fight, initial encounter; Y92.89 Other specified places as the place of occurrence of the external cause; Z87.81 Personal history of (healed) traumatic fracture | CPT/HCPCS: 73130 ==

== ENCOUNTER 2017-09-17 15:51 | Emergency (ER) | payer OTHER, MEDICAID ==
[2017-09-17] MEDS: CLINDAMYCIN 150 MG CAP PO (18:24)
[2017-09-17] MEDS: LIDOCAINE VISCOUS 2% SOLN 15ML UDC MT (18:24)
== END 2017-09-17 18:28 | disposition home or self-care (01) ==
LOC: M ED 15:51
DX: K04.7 Periapical abscess without sinus (principal); S02.5XXA Fracture of tooth (traumatic), initial encounter for closed fracture; X58.XXXA Exposure to other specified factors, initial encounter; Y92.9 Unspecified place or not applicable; Y93.9 Activity, unspecified; Y99.9 Unspecified external cause status; F32.9 Major depressive disorder, single episode, unspecified; F91.8 Other conduct disorders; F17.200 Nicotine dependence, unspecified, uncomplicated; Z88.0 Allergy status to penicillin; Z88.2 Allergy status to sulfonamides; Z88.8 Allergy status to other drugs, medicaments and biological substances
CPT/HCPCS: 99283

== ENCOUNTER 2017-10-23 11:50 | Emergency (ER) | payer OTHER | END 2017-10-23 15:27 | disposition home or self-care (01) | LOC: M ED 11:50 | DX: S02.5XXA Fracture of tooth (traumatic), initial encounter for closed fracture (principal); X58.XXXA Exposure to other specified factors, initial encounter; Y92.89 Other specified places as the place of occurrence of the external cause; Z88.0 Allergy status to penicillin; Z88.2 Allergy status to sulfonamides; Z88.8 Allergy status to other drugs, medicaments and biological substances; F17.210 Nicotine dependence, cigarettes, uncomplicated | CPT/HCPCS: 99283 ==

== ENCOUNTER 2018-02-04 09:28 | Emergency (ER) | payer OTHER ==
[2018-02-04] MEDS: NS 1,000 ML IV (10:12)
[2018-02-04] MEDS: ONDANSETRON 4MG/2ML VIAL (J2405) IV (10:12)
[2018-02-04 10:17] LABS: BASO % 0.3 % (0.0-1.0); EOS # 0.1 10^3/uL (0.0-0.50); EOS % 1.6 % (0.0-3.0); HEMATOCRIT 41.4 % (42.0-52.0); IMMATURE GRANULOCYTE % 0.2 % (0-3.0); LYMPH # 2.6 10^3/uL (1.5-6.5); LYMPH % 40.9 % (24.0-44.0); MEAN CORPUSCULAR HGB CONC 31.4 g/dl (32.0-36.5); MEAN CORPUSCULAR VOLUME 73.3 fl (80.0-96.0); MONO # 0.5 10^3/uL (0.0-0.8); MONO % 8.5 % (0.0-5.0); NEUTROPHILS % 48.5 % (36.0-66.0); PLATELET COUNT, AUTOMATED 240 10^3/uL (150-450); RED BLOOD COUNT 5.65 10^6/uL (4.30-6.10); RED CELL DISTRIBUTION WIDTH 13.8 % (11.5-14.5); WHITE BLOOD COUNT 6.2 10^3/uL (4.0-10.0)
[2018-02-04 10:46] LABS: ANION GAP 5 MEQ/L (8-16); BLOOD UREA NITROGEN 9 MG/DL (7-18); CALCIUM LEVEL 8.7 MG/DL (8.5-10.1); CARBON DIOXIDE LEVEL 26 MEQ/L (21-32); CHLORIDE LEVEL 111 MEQ/L (98-107); CREATININE FOR GFR 0.96 MG/DL (0.70-1.30); GLOMERULAR FILTRATION RATE > 60.0 (>60); GLUCOSE, FASTING 91 MG/DL (70-100); POTASSIUM SERUM 4.1 MEQ/L (3.5-5.1); SODIUM LEVEL 142 MEQ/L (136-145)
== END 2018-02-04 11:35 | disposition home or self-care (01) ==
LOC: M ED 09:28
DX: K52.9 Noninfective gastroenteritis and colitis, unspecified (principal); D56.9 Thalassemia, unspecified; R51 Headache; F32.9 Major depressive disorder, single episode, unspecified; Z72.0 Tobacco use; Z88.0 Allergy status to penicillin; Z88.2 Allergy status to sulfonamides; Z88.1 Allergy status to other antibiotic agents
CPT/HCPCS: J2405

== ENCOUNTER 2021-03-14 21:47 | Emergency (ER) | payer OTHER ==
[~2021-03-14] VITALS: Ht 193 cm; Wt 68.2 kg
[~2021-03-14 21:47] MED LIST: CLEO300C2 PO; HYDR-3715 PO; MAGICMW MT; PERC5TAB12 PO; ZOFR4TAB14 PO
--- OUTSIDE RECORDS SUMMARY | 2021-03-14 21:52 | CCD ---
Author Author [facility] Organization [facility] Address Unknown Phone Unavailable Support Name Relationship Address Phone ZIEBART Next Of Kin [address] [place] [address] JAIDEN Next Of Kin [address] [place] [address] Brittanie Guevara MD Next Of Kin [address] [place], [place] [id number] MISAEL Next Of Kin [address] [place] [address] Blake Castillo Next Of Kin [address] [place] [address] UE Next Of Kin Unknown Unavailable STREAM Next Of Kin [address] [place] [address] [facility] Next Of Kin [address] [place] [address] Unavailable Son AMBROSIO SR Next Of Kin [address] [place] [address] [place] [address] Re-disclosure Warning The records that you are about to access may contain information from federally-assisted alcohol or drug abuse programs. If such information is present, then the following federally mandated warning applies: This information has been disclosed to you from records protected by federal confidentiality rules (42 CFR part 2). The federal rules prohibit you from making any further disclosure of this information unless further disclosure is expressly permitted by the written consent of the person to whom it pertains or as otherwise permitted by 42 CFR part 2. A general authorization for the release of medical or other information is NOT sufficient for this purpose. The Federal rules restrict any use of the information to criminally investigate or prosecute any alcohol or drug abuse patient.The records that you are about to access may contain highly sensitive health information, the redisclosure of which is protected by Article 27-F of the [facility] Public Health law. If you continue you may have access to information: Regarding HIV / AIDS; Provided by facilities licensed or operated by the [facility] Office of Mental Health; or Provided by the [facility] Office for People With Developmental Disabilities. If such information is present, then the following [facility] mandated warning applies: This information has been disclosed to you from confidential records which are protected by state law. State law prohibits you from making any further disclosure of this information without the specific written consent of the person to whom it pertains, or as otherwise permitted by law. Any unauthorized further disclosure in violation of state law may result in a fine or skilled nursing sentence or both. A general authorization for the release of medical or other information is NOT sufficient authorization for further disc losure. Encounters Encounter Providers Location Date Indications Data Source(s ) Outpatient 06/11/2020 10:42:21 AM EST - 020 08:37:23 AM EST [facility] ([facility]) Outpatient 06/10/2020 05:54:11 PM EST - 020 03:23:25 PM EST [facility] ([facility]) Medications No Information Insurance Providers Payer name Policy type / Coverage type Policy ID Covered democrat ID Covered democrat's relationship to ruff Policy Ruff Plan Information Managed Care - Community Plan [facility] P [id number] S [id number] Medicaid S [id number] S [id number] Medicaid S [id number] S [id number] Managed Care - Community Plan [facility] P [id number] S [id number] [facility] Commercial Insurance Co. [id number] Self [id number] MEDICAID [id number] SP [id number] BCBS OF [place] 306/806 [id number] MO2 [id number] HMO BLUE [id number] MO2 [id number] [facility] MCDHMO [id number] SP [id number] SELF PAY UNAVAILABLE SP UNAVAILA BLE UN COMMUNITY PLAN XIX [id number] 18 [id number] [facility] [id number] SP [id number] [facility] O [id number] S [id number] [facility] [id number] SP [id number] Problems, Conditions, and Diagnoses No Information Surgeries/Procedures No Information Results ID Date Data Source [id number] 12/31/2020 12:00:00 AM EDT [facility] Name Value Range Interpretation Code Description Data Azra rce(s) Supporting Document(s) SARS-CoV2 Rapid Antigen Positive [facility] This [facility] and reported by [facility]. Procedure Social History No Information
[2021-03-14 22:30] VITALS: BP 128/63
== END 2021-03-15 02:02 | disposition home or self-care (01) ==
LOC: M ED 21:47
DX: F43.0 Acute stress reaction (principal); F32.A Depression, unspecified; F17.200 Nicotine dependence, unspecified, uncomplicated; Z88.0 Allergy status to penicillin; Z88.2 Allergy status to sulfonamides

== ENCOUNTER → 2022-01-26 | Outpatient (REF) | payer OTHER | LOC: M LAB REF 21:56 | PROVIDERS: ATTEND Physician Assistant | DX: J02.9 Acute pharyngitis, unspecified (principal) ==

== ENCOUNTER 2022-09-15 12:40 | Emergency (ER) | payer OTHER ==
[~2022-09-15] VITALS: Ht 188 cm; Wt 71.4 kg
[2022-09-15 14:22] LABS: LIPASE 36 U/L (12-53)
[2022-09-15 14:24] LABS: ALBUMIN 4.3 G/DL (3.2-5.2); ALKALINE PHOSPHATASE 47 U/L (46-116); ALT/SGPT 44 U/L (7.0-40); AST/SGOT 20 U/L (<34); BILIRUBIN,DIRECT 0.3 MG/DL (<0.4); BILIRUBIN,TOTAL 0.7 MG/DL (0.3-1.2); BLOOD UREA NITROGEN 9 MG/DL (9-23); CALCIUM LEVEL 8.8 MG/DL (8.5-10.1); CARBON DIOXIDE LEVEL 27 MMOL/L (20-31); CHLORIDE LEVEL 104 MMOL/L (98-107); CREATININE FOR GFR 0.96 MG/DL (0.70-1.30); GLOMERULAR FILTRATION RATE > 60.0 (>60); GLUCOSE, FASTING 108 MG/DL (60-100); POTASSIUM SERUM 3.6 MMOL/L (3.5-5.1); SODIUM LEVEL 136 MMOL/L (136-145); TOTAL PROTEIN 6.8 G/DL (5.7-8.2)
[2022-09-15 14:49] LABS: ERYTHROCYTE SEDIMENTATION RATE 11 mm/hr (0-15)
[2022-09-15 14:59] LABS: BASO % 0.2 % (0.0-1.0); EOS % 0.2 % (0.0-3.0); HEMATOCRIT 40.4 % (42.0-52.0); LYMPH # 1.1 10^3/uL (1.5-5.0); LYMPH % 6.2 % (24.0-44.0); MEAN CORPUSCULAR HEMOGLOBIN 23.8 pg (27.0-33.0); MEAN CORPUSCULAR HGB CONC 32.2 g/dl (32.0-36.5); MONO % 8.5 % (2.0-8.0); NEUTROPHILS # 15.1 10^3/uL (1.5-8.5); NEUTROPHILS % 84.3 % (36.0-66.0); PLATELET COUNT, AUTOMATED 238 10^3/uL (150-450); RED BLOOD COUNT 5.46 10^6/uL (4.30-6.10); WHITE BLOOD COUNT 17.9 10^3/uL (4.0-10.0)
[2022-09-15 15:08] LABS: MONO # 1.5 10^3/uL (0.0-0.8)
[2022-09-15] MEDS ORDERED: KETOROLAC 30 MG/ML 1ML VIAL IV ONE (15:25)
[2022-09-15] MEDS ORDERED: NS 1,000 ML IV ONE (15:45)
[2022-09-15] MEDS ORDERED: ONDANSETRON 4MG 2ML VIAL IV ONE (15:45)
[2022-09-15] MEDS ORDERED: MAGICMW SSP (16:27)
[2022-09-15] MEDS ORDERED: CLEO300C2 PO (16:27)
[2022-09-15] MEDS ORDERED: ONDA4TAB6 PO (16:27)
[2022-09-15 16:52] VITALS: BP 121/86
== END 2022-09-15 16:54 | disposition home or self-care (01) ==
LOC: M ED 12:40
DX: J02.0 Streptococcal pharyngitis (principal); K59.00 Constipation, unspecified; F31.9 Bipolar disorder, unspecified; F32.A Depression, unspecified; F41.9 Anxiety disorder, unspecified; F17.200 Nicotine dependence, unspecified, uncomplicated; Z88.0 Allergy status to penicillin; Z88.2 Allergy status to sulfonamides; Z79.83 Long term (current) use of bisphosphonates; Z79.899 Other long term (current) drug therapy
CPT/HCPCS: 80048; 80076; 83690; 85025; 85652; 86140; 87880; 96361; 96374; 96375; 99283; J1885; J2405

== ENCOUNTER 2024-12-27 12:22 | Inpatient (IN) | payer MEDICAID, OTHER ==
[~2024-12-27] VITALS: Ht 190.5 cm; Wt 66.4 kg
[~2024-12-27 12:22] MED LIST changes: +MAGICMW SSP; +ONDA-282 PO
[2024-12-27 13:34] LABS: PLATELET COUNT, AUTOMATED 290 10^3/uL (150-450)
[2024-12-27] MEDS: TETANUS/DIPHTH/ACEL. PERTUSSIS 0.5 ML SYR IM.IMMUN ONE (13:53)
[2024-12-27 13:58] LABS: AMPHETAMINES LEVEL URINE NEGATIVE (NEGATIVE); BARBITURATES URINE NEGATIVE (NEGATIVE); BENZODIAZEPINES URINE NEGATIVE (NEGATIVE); COCAINE METABOLITE URINE NEGATIVE (NEGATIVE); METHADONE URINE NEGATIVE (NEGATIVE); OPIATES URINE NEGATIVE (NEGATIVE); PHENCYCLIDINE URINE NEGATIVE (NEGATIVE)
[2024-12-27 14:00] LABS: ETHYL ALCOHOL (ETHANOL) < 0.003 % (0.000-0.010)
[2024-12-27 14:01] LABS: CANNABINOIDS URINE POSITIVE (NEGATIVE)
[2024-12-27 14:02] LABS: ALT/SGPT 17 U/L (7.0-40); AST/SGOT 17 U/L (<34); CALCIUM LEVEL 9.7 MG/DL (8.5-10.1); CARBON DIOXIDE LEVEL 25 MMOL/L (20-31); CHLORIDE LEVEL 109 MMOL/L (98-107); CREATININE FOR GFR 1.20 MG/DL (0.70-1.30); GLOMERULAR FILTRATION RATE 80.9 (>60); POTASSIUM SERUM 3.9 MMOL/L (3.5-5.1); SALICYLATE LEVEL < 3.0 MG/DL (<30); SODIUM LEVEL 147 MMOL/L (136-145)
[2024-12-27] MEDS ORDERED: MAALOX 30 ML SUSP *UDC PO PRN (16:45)
[2024-12-27] MEDS ORDERED: IBUPROFEN 400 MG TAB PO PRN (16:45)
[2024-12-27] MEDS: OLANZapine 5 MG TAB PO ONE (17:13)
[2024-12-27] MEDS ORDERED: HOME MED LIST COMPLETE! XX SCH (17:40)
[2024-12-27 19:23] VITALS: BP 135/74; TEMP 99; O2SAT 100
[2024-12-28 06:23] VITALS: BP 114/64; TEMP 97.9; O2SAT 99
[2024-12-28] MEDS: MUPIROCIN 2% OINT 22 GM TUBE TOP SCH (09:00)
[2024-12-28] MEDS ORDERED: OLANZapine 5 MG TAB PO PRN (10:40)
[2024-12-28] MEDS: OLANZapine 5 MG TAB PO SCH (10:57)
[2024-12-28 15:11] LABS: ESTIMATED AVERAGE GLUCOSE 111.0 MG/DL (60-110)
[2024-12-28 15:15] VITALS: BP 123/62; TEMP 98.5; O2SAT 98
[2024-12-28] MEDS: traZODone 50 MG TAB PO PRN (20:01)
[2024-12-28] MEDS: ACETAMINOPHEN 325 MG TAB PO PRN (20:02)
[2024-12-29 06:42] VITALS: BP 121/58; TEMP 98.2; O2SAT 100
[2024-12-29 16:38] VITALS: BP 127/65; TEMP 98.3; O2SAT 99
[2024-12-29] MEDS: MOM 30 ML SUSPENSION UDC PO PRN (18:47)
[2024-12-30 06:31] VITALS: BP 116/65; TEMP 97.4; O2SAT 100
[2024-12-30] MEDS ORDERED: OLAN1TAB16 PO (09:01)
[2024-12-30] MEDS ORDERED: TRAZ-252 PO (09:01)
[2024-12-30] MEDS ORDERED: ABIL1TAB11 PO (09:01)
== END 2024-12-30 11:38 | disposition home or self-care (01) | DRG 753 ==
LOC: M ED 12:22 → M ED INP 16:42 → M PSY 18:22
PROVIDERS: ADMIT General Practice; ATTEND General Practice
DX: F31.9 Bipolar disorder, unspecified (principal); R45.851 Suicidal ideations; Z88.0 Allergy status to penicillin; Z88.2 Allergy status to sulfonamides; Z88.8 Allergy status to other drugs, medicaments and biological substances; R51.9 Headache, unspecified

== ENCOUNTER → 2025-02-04 | Outpatient (REF) | payer MEDICAID ==
[~2025-02-04] MED LIST changes: +ABIL1TAB11 PO; +OLAN1TAB16 PO; +TRAZ-252 PO
[2025-02-04 12:55] LABS: ALT/SGPT 60 U/L (7.0-40); AST/SGOT 25 U/L (<34); CALCIUM LEVEL 9.3 MG/DL (8.5-10.1); CARBON DIOXIDE LEVEL 27 MMOL/L (20-31); CHLORIDE LEVEL 105 MMOL/L (98-107); CHOLESTEROL LEVEL 147 MG/DL (<200); CHOLESTEROL RISK RATIO 4.48 (<5); CREATININE FOR GFR 0.97 MG/DL (0.70-1.30); GLOMERULAR FILTRATION RATE > 90.0 (>60); LDL CHOLESTEROL 90.6 MG/DL (<100); NON-HDL-C 114.2 MG/DL; POTASSIUM SERUM 4.2 MMOL/L (3.5-5.1); SODIUM LEVEL 141 MMOL/L (136-145); TRIGLYCERIDES LEVEL 118 MG/DL (<150)
[2025-02-04 12:56] LABS: FREE T4 1.08 NG/DL (0.89-1.76)
[2025-02-04 13:49] LABS: ESTIMATED AVERAGE GLUCOSE 120.0 MG/DL (60-110)
== END ==
LOC: M LAB REF 12:17
PROVIDERS: ATTEND Family Medicine Addiction Medicine
DX: Z83.3 Family history of diabetes mellitus (principal)